=== PATIENT | female | born 1970 | race Caucasian/White ===

== ENCOUNTER 2019-01-11 20:34 | Emergency (ER) | payer BC ==
[2019-01-11 21:17] VITALS: BP 142/88
--- NOTE | 2019-01-11 21:30 | UC ---
Abdominal Pain Female HPI - HPI Summary HPI Summary: 48-year-old woman comes in with a chief complaint of lower abdominal pain 3 days. At rest the pain is been only 1 out of 10. When she moves around he gets worse run a 6 out of 10. Recently she's been having some chills and also feeling hot. No dysuria. She does have a history of kidney stones he says this does not feel like kidney stones. She's never had any abdominal surgeries. - History of Current Complaint Chief Complaint: UCAbdominalPain Stated Complaint: ABD PAIN x3 DAYS Time Seen by Provider: 01/11/19 21:19 Hx Last Menstrual Period: 12/27/18 Pain Intensity: 7 Allergies/Adverse Reactions: Allergies Allergy/AdvReac Type Severity Reaction Status Date / Time No Known Allergies Allergy Verified 01/11/19 21:09 Home Medications: Home Medications Ibuprofen TAB* [Advil TAB*] 400 mg PO Q6H PRN 01/11/19 [History Confirmed ] Sennosides [Ex-Lax] 15 mg PO ONCE PRN 01/11/19 [History Confirmed 01/11/19] PMH/Surg Hx/FS Hx/Imm Hx Previously Healthy: Yes - URINARY INCONTINENCE Endocrine History: Hypothyroidism - Surgical History Surgical History: Yes Surgery Procedure, Year, and Place: D&C - Family History Known Family History: Positive: Non-Contributory - Social History Alcohol Use: Occasionally Substance Use Type: None Smoking Status (MU): Former Smoker Type: Cigarettes Have You Smoked in the Last Year: No When Did the Patient Quit Smoking/Using Tobacco: 23 years ago Review of Systems All Other Systems Reviewed And Are Negative: Yes Constitutional: Positive: Chills Skin: Positive: Negative Eyes: Positive: Negative ENT: Positive: Negative Respiratory: Positive: Negative Cardiovascular: Positive: Negative Gastrointestinal: Positive: Abdominal Pain Genitourinary: Positive: Negative Motor: Positive: Negative Neurovascular: Positive: Negative Musculoskeletal: Positive: Negative Neurological: Positive: Negative Psychological: Positive: Negative Is Patient Immunocompromised?: No Physical Exam Triage Information Reviewed: Yes Appearance: Well-Nourished, Ill-Appearing - MILD, Pain Distress - MILD Vital Signs: Initial Vital Signs Temp 100.4 F 01/11/19 21:11 Pulse 94 01/11/19 21:11 Resp 16 01/11/19 21:11 BP 142/88 01/11/19 21:11 Pulse Ox 100 01/11/19 21:11 Vital Signs Reviewed: Yes Eye Exam: Normal Eyes: Positive: Conjunctiva Clear Neck: Positive: Supple Respiratory: Positive: Lungs clear, Normal breath sounds, No respiratory distress Cardiovascular: Positive: RRR Abdomen Description: Positive: Other: - TENDER TO PALPATION LOWER ABDOMEN; LLQ IS MOST TENDER Bowel Sounds: Positive: Hypoactive Musculoskeletal Exam: Normal Musculoskeletal: Positive: Strength Intact, ROM Intact Neurological Exam: Normal Neurological: Positive: Alert, Muscle Tone Normal Psychological Exam: Normal Psychological: Positive: Normal Response To Family, Age Appropriate Behavior Skin Exam: Normal Abd Pain Female Course/Dx - Differential Dx/Diagnosis Provider Diagnosis: Abdominal pain, left lower quadrant Discharge - Sign-Out/Discharge Documenting (check all that apply): Patient Departure All imaging exams completed and their final reports reviewed: No Studies - Discharge Plan Condition: Stable Disposition: HOME-RECOMMEND TO ED Referrals: Elizabeth Merritt MD [Primary Care Provider] - Additional Instructions: GO DIRECTLY TO THE EMERGENCY DEPARTMENT FOR FURTHER EVALUATION OF YOUR ABDOMINAL PAIN WITH FEVER. - Billing Disposition and Condition Condition: STABLE Disposition: Home-Recommend to ED
== END 2019-01-11 21:36 | disposition home health service (06) ==
LOC: UCCORT 20:34
DX: R10.32 Left lower quadrant pain (principal); R32 Unspecified urinary incontinence; E03.9 Hypothyroidism, unspecified; Z87.891 Personal history of nicotine dependence
CPT/HCPCS: 99212; G0463